=== PATIENT | male | born 1940 | race Caucasian/White ===

== ENCOUNTER 2019-12-07 12:02 | Inpatient (IN) | payer MEDICARE ==
[~2019-12-07] VITALS: Ht 172.7 cm; Wt 79.4 kg
[2019-12-07] MEDS ORDERED: LIPITOR20 MG (12:18)
[2019-12-07] MEDS ORDERED: LOPRESSOR25 MG PO (12:18)
[2019-12-07 12:41] LABS: BASOPHILS 0.3 % (0-2); EOSINOPHILS 0.7 % (0-7); HEMATOCRIT 32.9 % (42.0-54.0); HEMOGLOBIN 11.7 g/dL (13.5-17.5); LYMPHOCYTES 16.8 % (15-50); MCHC 35.6 g/dL (31.0-37.0); MCV 87.3 fL (80.0-100.0); MONOCYTES 10.4 % (2-11); NEUTROPHILS 71.8 % (40-80); PLATELET COUNT 105 10x3/uL (130-400); RBC 3.77 10x6/uL (4.20-6.10); RDW 12.1 % (11.5-14.5)
[2019-12-07 12:51] LABS: CALC OSMOLALITY 281 mosm/kg (275-300); CARBON DIOXIDE 23.2 mmol/L (21.0-32.0); CHLORIDE - SERUM 101 mmol/L (98-107); CREATININE - SERUM 1.9 mg/dL (0.6-1.3); GLUCOSE 319 mg/dL (74-106); POTASSIUM - SERUM 4.3 mmol/L (3.5-5.1); SODIUM 131 mmol/L (136-145); UREA NITROGEN 33 mg/dL (7-18); eGFR NON AFRICAN AMERICAN 36 mL/min (90-120)
[2019-12-07 12:55] LABS: INR 1.06 (0.85-1.17); PROTIME 13.7 SECONDS (11.6-15.0)
[2019-12-07 12:56] LABS: APTT 38.4 SECONDS (22.8-39.4)
[2019-12-07 13:13] LABS: ALBUMIN 2.8 g/dL (3.4-5.0); ALKALINE PHOSPHATASE 72 U/L (30-120); ALT (SGPT) 40 U/L (10-68); BILIRUBIN - TOTAL 0.63 mg/dL (0.2-1.3); CKMB 3.2 U/L (0.0-3.6); CREATINE KINASE 725 UL (21-232); PRO BNP 592 pg/mL (0-450); PROTEIN - SERUM 6.4 g/dL (6.4-8.2); TROPONIN-I 0.039 ng/mL (0.000-0.060)
[2019-12-07 14:15] VITALS: BP 143/67
[2019-12-07 16:01] VITALS: BP 161/74
--- NOTE | 2019-12-07 17:00 | NUR ---
ZITHROMAX COMPLETED AT THIS TIME
--- NOTE | 2019-12-07 22:26 | NUR ---
PT FOUND DRINKING REG SPRITE. BS CHECKED SEE EMAR. PT HE NEED DIET DRINKS OR WATER.
[2019-12-07 22:34] VITALS: BP 154/76
--- NOTE | 2019-12-07 23:00 | NUR ---
PT MOVED FROM ER STRECHER TO INPATIENT BED FOR COMFORT. PT GIVEN WATER TO DRINK.
[2019-12-07 23:20] VITALS: BP 163/89
[2019-12-08] VITALS (17 sets, daily range): BP systolic 130–171; BP diastolic 60–87; BMI 26.7
--- NOTE | 2019-12-08 01:00 | NUR ---
PT RESTING EYES CLOSED RESP EVEN AND UNLABORED. WILL CONT TO MONITOR
--- NOTE | 2019-12-08 04:00 | NUR ---
PT RESTING EYES CLOSED RESP EVEN AND UNLABORED. WILL CONT TO MONITOR
--- NOTE | 2019-12-08 06:00 | NUR ---
PT GIVEN TOILETRY ITEMS AT THIS TIME. PT DENIES FURTHER NEEDS.
--- NOTE | 2019-12-08 07:10 | NUR ---
PT CARE ASSUMED AT THIS TIME, PT SLEEPING ON ENTRANCE TO ROOM, AWAKENS EASILY TO VOICE, ORIENTED X 4, RESPIRATIONS EVEN AND UNLABORED, PULSES EQUAL AND STRONG, NAD NOTED, URINAL EMPTIED OF 300 ML CLEAR YELLOW URINE, PIV SALINE LOCKED WITHOUT SIGNS OF INFLITRATION, VSS ON THE MONITOR, BED LOW AND LOCKED, DENIES NEEDS AT THIS TIME, CALL LIGHT IN REACH.
[2019-12-08 07:58] LABS: BASOPHILS 0.3 % (0-2); EOSINOPHILS 0 % (0-7); HEMATOCRIT 33.3 % (42.0-54.0); HEMOGLOBIN 11.8 g/dL (13.5-17.5); IMMATURE GRANULOCYTES 0.3 % (0-5); LYMPHOCYTES 16.6 % (15-50); MCH 30.8 pg (26.0-34.0); MCHC 35.4 g/dL (31.0-37.0); MCV 86.9 fL (80.0-100.0); MEAN PLATELET VOLUME 10.3 fL (7.4-10.4); MONOCYTES 9.6 % (2-11); NEUTROPHILS 73.2 % (40-80); PLATELET COUNT 126 10x3/uL (130-400); RBC 3.83 10x6/uL (4.20-6.10); RDW 12.1 % (11.5-14.5); WBC 3.4 10x3/uL (4.8-10.8)
[2019-12-08 08:34] LABS: ALBUMIN 2.7 g/dL (3.4-5.0); ALKALINE PHOSPHATASE 80 U/L (30-120); ALT (SGPT) 44 U/L (10-68); BILIRUBIN - TOTAL 0.36 mg/dL (0.2-1.3); CALCIUM 8.3 mg/dL (8.5-10.1); CARBON DIOXIDE 24.3 mmol/L (21.0-32.0); CHLORIDE - SERUM 102 mmol/L (98-107); CREATININE - SERUM 1.8 mg/dL (0.6-1.3); MAGNESIUM - SERUM 2.4 mg/dL (1.8-2.4); POTASSIUM - SERUM 4.5 mmol/L (3.5-5.1); PROTEIN - SERUM 6.6 g/dL (6.4-8.2); SODIUM 134 mmol/L (136-145); UREA NITROGEN 39 mg/dL (7-18); URIC ACID 7.1 mg/dL (2.6-7.2); eGFR NON AFRICAN AMERICAN 39 mL/min (90-120)
[2019-12-08 08:36] LABS: CALC OSMOLALITY 291 mosm/kg (275-300); CREATINE KINASE 530 UL (21-232); GLUCOSE 373 mg/dL (74-106)
--- NOTE | 2019-12-08 15:55 | NUR ---
PRIOR TO TRANSPORT TO THE FLOOR, PT URINATED APPRIXIMATELY 50 ML OF CONCENTRATED URINE, SPECIMEN SENT TO LAB.
--- NOTE | 2019-12-08 16:40 | NUR ---
PT RECEIVED FROM ER. ER NURSE ITZEL STATES PT WAS ABLE TO URINATE 50CC BUT DOES NOT FEEL PAIN OR HAVE THE URGE. PT URINATED 0710 300CC. XR SHOWED BLADDER DISTENTION AND 609MM. CALLED AND SPOKE WITH NAOMI ANGELES AND SHE STATES TO PLACE DEVLIN CATH FOR RETENTION. I VERBALIZED UNDERSTANDING.
--- NOTE | 2019-12-08 16:45 | NUR ---
16 GEORGIAN DEVLIN CATH PLACED PT TOLERATED WELL. OVER 500CC OF DARK CONCENTRATED URINE IN BAG. WILL CONTINUE TO MONITOR.
[2019-12-08 16:56] LABS: BILIRUBIN NEGATIVE (NEGATIVE); KETONE NEGATIVE (NEGATIVE); NITRITE NEGATIVE (NEGATIVE); UROBILINOGEN NORMAL mg/dL (< 2)
--- NOTE | 2019-12-08 19:30 | NUR ---
RECEIVED REPORT, WILL ASSUME CARE OF PT, TALKING ON PHONE, DENIES ANY NEEDS AT THIS TIME, BED IS LOW, SRX2, CALL LIGHT IN REACH, WILL CONTINUE PLAN OF CARE
[2019-12-09 03:19] VITALS: BP 159/79
[2019-12-09 06:54] LABS: BASOPHILS 0 % (0-2); EOSINOPHILS 0 % (0-7); HEMATOCRIT 31.5 % (42.0-54.0); HEMOGLOBIN 11.1 g/dL (13.5-17.5); IMMATURE GRANULOCYTES 0.2 % (0-5); LYMPHOCYTES 13.1 % (15-50); MCH 30.6 pg (26.0-34.0); MCHC 35.2 g/dL (31.0-37.0); MCV 86.8 fL (80.0-100.0); MEAN PLATELET VOLUME 9.9 fL (7.4-10.4); MONOCYTES 6.8 % (2-11); NEUTROPHILS 79.9 % (40-80); PLATELET COUNT 126 10x3/uL (130-400); RBC 3.63 10x6/uL (4.20-6.10); RDW 11.9 % (11.5-14.5); WBC 5.9 10x3/uL (4.8-10.8)
[2019-12-09 07:28] LABS: ALBUMIN 2.6 g/dL (3.4-5.0); ALKALINE PHOSPHATASE 65 U/L (30-120); ALT (SGPT) 46 U/L (10-68); BILIRUBIN - TOTAL 0.43 mg/dL (0.2-1.3); CALC OSMOLALITY 287 mosm/kg (275-300); CALCIUM 8.1 mg/dL (8.5-10.1); CARBON DIOXIDE 26.1 mmol/L (21.0-32.0); CHLORIDE - SERUM 105 mmol/L (98-107); CREATINE KINASE 331 UL (21-232); CREATININE - SERUM 1.6 mg/dL (0.6-1.3); GLUCOSE 230 mg/dL (74-106); MAGNESIUM - SERUM 2.3 mg/dL (1.8-2.4); POTASSIUM - SERUM 4.5 mmol/L (3.5-5.1); PROTEIN - SERUM 6.1 g/dL (6.4-8.2); SODIUM 137 mmol/L (136-145); UREA NITROGEN 33 mg/dL (7-18); URIC ACID 6.5 mg/dL (2.6-7.2); eGFR NON AFRICAN AMERICAN 44 mL/min (90-120)
[2019-12-09 07:30] VITALS: BP 166/85
--- NOTE | 2019-12-09 08:15 | NUR ---
PT RECEIVED AWAKE AND ALERT, STATES NOT SLEPT ALL NIGHT. TYLENOL GIVEN FOR PAIN. BP UP SO PRN MED GIVEN. WILL FOLLOW UP WITH PHYSICIAN REGARDING SOMETHING FOR SLEEP FOR TONIGHT. DEVLIN EMPTIED.
[2019-12-09 11:33] VITALS: BP 149/66
[2019-12-09 14:04] VITALS: Ht 172.7 cm; Wt 79.4 kg
[2019-12-09 16:30] VITALS: BP 140/59
--- NOTE | 2019-12-09 17:57 | NUR ---
PT ASSISTED TO BATHROOM FOR BM. ATE DINNER AND HAS BEEN TRYING TO REST.
--- NOTE | 2019-12-09 19:30 | NUR ---
PT IN BED, AAO X 3, RESP EVEN AND UNLABORED, NO DISTRESS NOTED, CL IN REACH, SR UP X 2.
[2019-12-09 20:00] VITALS: BP 148/71
[2019-12-10] VITALS: BP 140/66
[2019-12-10 04:00] VITALS: BP 146/61
[2019-12-10 06:35] LABS: BASOPHILS 0.3 % (0-2); EOSINOPHILS 0.8 % (0-7); HEMOGLOBIN 11.4 g/dL (13.5-17.5); LYMPHOCYTES 22.3 % (15-50); MCH 30.2 pg (26.0-34.0); MCHC 34.5 g/dL (31.0-37.0); MCV 87.5 fL (80.0-100.0); MEAN PLATELET VOLUME 9.5 fL (7.4-10.4); NEUTROPHILS 66.6 % (40-80); PLATELET COUNT 132 10x3/uL (130-400); RBC 3.77 10x6/uL (4.20-6.10)
[2019-12-10 06:39] LABS: WBC 3.8 10x3/uL (4.8-10.8)
[2019-12-10 06:59] LABS: ALBUMIN 2.6 g/dL (3.4-5.0); ANION GAP 11.8 mmol/L (8-16); BILIRUBIN - TOTAL 0.46 mg/dL (0.2-1.3); CALCIUM 8.1 mg/dL (8.5-10.1); CARBON DIOXIDE 27.1 mmol/L (21.0-32.0); CREATININE - SERUM 1.5 mg/dL (0.6-1.3); MAGNESIUM - SERUM 2.1 mg/dL (1.8-2.4); POTASSIUM - SERUM 3.9 mmol/L (3.5-5.1); PROTEIN - SERUM 6.1 g/dL (6.4-8.2)
--- NOTE | 2019-12-10 07:38 | NUR ---
PT RECEIVED ASLEEP IN BED. NO OBVIOUS SIGNS OF DISTRESS. CALL LIGHT IN REACH.
[2019-12-10 09:00] VITALS: BP 129/58
[2019-12-10 12:24] VITALS: BP 141/61
--- NOTE | 2019-12-10 15:18 | NUR ---
PT WITH DENTURES IN STYROFOAM CUP AT BEDSIDE. DENTURE CUP GIVEN. IV ANTIBIOTICS STARTED. PT STILL ON TELEMETRY.
--- NOTE | 2019-12-10 16:43 | MORECARE ---
CASE MANAGEMENT DISCHARGE SUMMARY PATIENT: PER STEPHEN UNIT: [id number] ADM DATE: 12/07/19 AGE: 79 : 39 SEX: M ROOM/BED: D.8 AUTHOR: DAYO BONILLA PHYSICIAN: REFERRING PHYSICIAN: KRISTAL MAZARIEGOS MD DATE OF SERVICE: 12/10/19 Discharge Plan Patient Name: PER STEPHEN [facility] [facility] 1940 Planned Disposition: Home or Self Care Anticipated Discharge Date: Discharge Date: Expected LOS: Initial Reviewer: [email or web address] Initial Review Date: 12/07/2019 Generated: 12/10/19 5:43 pm DCPIA - Discharge Planning Initial Assessment Updated by [email or web address]: Nevaeh Stringer on 12/10/19 4:40 pm * Is the patient Alert and Oriented? No * How many steps to enter\exit or inside your home? 0/0 * [facility] * Preadmission Environment Home Alone * ADLs Independent * Equipment None * List name and contact numbers for known caregivers / representatives who currently or will assist patient after discharge: Brian (brother) [phone] * Additional services required to return to the preadmission environment? Yes * Can the patient safely return to the preadmission environment? Yes * Has this patient been hospitalized within the prior 30 days at any hospital? No Patient Name: PER STEPHEN Page 74523 at 1643 All edits/amendments must be made on the electronic document DICTATION DATE: 12/10/191642 SENIOR ATTORNEY: NINA 12/10/191642 RPT#: [id number] DC DATE: STATUS: ADM IN [facility] [address] [place] [address] END OF REPORT
--- NOTE | 2019-12-10 16:52 | MORECARE ---
CASE MANAGEMENT DISCHARGE SUMMARY PATIENT: PER STEPHEN UNIT: [id number] ADM DATE: 12/07/19 AGE: 79 : 39 SEX: M ROOM/BED: D.2128 AUTHOR: IRENEDOC PHYSICIAN: REFERRING PHYSICIAN: KRISTAL MAZARIEGOS MD DATE OF SERVICE: 12/10/19 Discharge Plan Patient Name: PER STEPHEN Facility: [facility]:[place] : 1940 Planned Disposition: Home or Self Care Anticipated Discharge Date: Discharge Date: Expected LOS: Initial Reviewer: [email or web address] Initial Review Date: 12/07/2019 Generated: 12/10/19 5:51 pm Comments DCP- Discharge Planning Updated by [email or web address]: Nevaeh Stringer on 12/10/19 3:[address] Patient Name: PER STEPHEN Admission Status: ER Accout number: [id number] Admission Date: 12-07-2019 : 1940 Admission Diagnosis:DYSPNEA, UNSPECIFIED Attending: KRISTAL ZACARIAS Current LOS: 3 Anticipated DC Date: Planned Disposition: Home or Self Care Primary Insurance: [facility] MEDIC[employer] SOLUTIONS Discharge Planning Comments: CM called pt room and unable to reach pt. CM called pt brotherBrian at [phone] who provided DCP assessment. Prior to admission the patient lived at home and was independent of his ADL's. He did not use any DME, or required additional services at home. The pt has been on oxygen during this hospitalization and may require oxygen at home. The patient uses [facility] benefits so CM will obtain home oxygen from the [place] if warranted. Brian will continuous pickling line pickler his brother upon discharge. CM will continue to assist as needed with dc/planning needs. Multimedia Artist: Nevaeh Stringer DCPIA - Discharge Planning Initial Assessment Updated by [email or web address]: Nevaeh Stringer on 12/10/19 4:40 pm * Is the patient Alert and Oriented? No * How many steps to enter\exit or inside your home? 0/0 * [facility]CP [facility] * Pharmacy [facility] * Preadmission Environment Home Alone * ADLs Independent * Equipment None * List name and contact numbers for known caregivers / representatives who currently or will assist patient after discharge: Brian (brother) [phone] * Additional services required to return to the preadmission environment? Yes * Can the patient safely return to the preadmission environment? Yes * Has this patient been hospitalized within the prior 30 days at any hospital? No Last DP export: 12/10/19 3:43 p Patient Name: PER STEPHEN Page [id number] at 1652 All edits/amendments must be made on the electronic document DICTATION DATE: 12/10/191650 REGIONAL SALES COORDINATOR: NINA 12/10/191650 RPT#: [id number] DC DATE: STATUS: ADM IN [facility] [address] [place] [address] END OF REPORT
--- NOTE | 2019-12-10 18:27 | NUR ---
PT GIVEN INCENTIVE SPIROMETRY AND INSTRUCTED ON USE. ABLE TO GET 1500 VOLUME WITH GOOD TECHNIQUE.
--- NOTE | 2019-12-10 19:30 | NUR ---
PT IN BED, EYES CLOSED, RESP EVEN AND UNLABORED, NO DISTRESS NOTED, CL IN REACH, SR UP X 2
[2019-12-10 20:00] VITALS: BP 148/74
[2019-12-11 04:00] VITALS: BP 155/72
[2019-12-11 06:47] LABS: BASOPHILS 0 % (0-2); EOSINOPHILS 0 % (0-7); HEMATOCRIT 29.7 % (42.0-54.0); HEMOGLOBIN 10.4 g/dL (13.5-17.5); IMMATURE GRANULOCYTES 0.5 % (0-5); LYMPHOCYTES 15.9 % (15-50); MCH 30.2 pg (26.0-34.0); MCV 86.3 fL (80.0-100.0); MEAN PLATELET VOLUME 9.9 fL (7.4-10.4); NEUTROPHILS 77.6 % (40-80); PLATELET COUNT 130 10x3/uL (130-400); RBC 3.44 10x6/uL (4.20-6.10); RDW 11.8 % (11.5-14.5); WBC 3.6 10x3/uL (4.8-10.8)
[2019-12-11 07:20] LABS: ALBUMIN 2.4 g/dL (3.4-5.0); ANION GAP 10.7 mmol/L (8-16); BILIRUBIN - TOTAL 0.37 mg/dL (0.2-1.3); CALCIUM 8.1 mg/dL (8.5-10.1); CARBON DIOXIDE 26.6 mmol/L (21.0-32.0); CREATININE - SERUM 1.5 mg/dL (0.6-1.3); MAGNESIUM - SERUM 2.1 mg/dL (1.8-2.4); POTASSIUM - SERUM 4.3 mmol/L (3.5-5.1); PROTEIN - SERUM 5.9 g/dL (6.4-8.2)
[2019-12-11 08:19] VITALS: BP 126/44
--- NOTE | 2019-12-11 09:36 | NUR ---
0700-LYING IN BED W/EYES CLOSED, NO DISTRESS NOTED. 0900-BREAKFAST SERVED, DENIES ANY NEEDS.
[2019-12-11] MEDS ORDERED: AZITHROMYCIN500 MG PO (11:12)
[2019-12-11] MEDS ORDERED: OMNICEF300 MG PO (11:12)
[2019-12-11] MEDS ORDERED: DECADRON4 MG PO (11:13)
[2019-12-11] MEDS ORDERED: VENTOLIN HFA [SP8 GM INH (11:14)
[2019-12-11 12:09] VITALS: BP 132/62
--- NOTE | 2019-12-11 12:14 | MORECARE ---
CASE MANAGEMENT DISCHARGE SUMMARY PATIENT: PER STEPHEN UNIT: [id number] ADM DATE: 12/07/19 AGE: 79 : 39 SEX: M ROOM/BED: D.0125 AUTHOR: DAYO BONILLA PHYSICIAN: REFERRING PHYSICIAN: KRISTAL MAZARIEGOS MD DATE OF SERVICE: 12/11/19 Discharge Plan Patient Name: PER STEPHEN Facility: [facility]:[place] : 1940 Planned Disposition: Home or Self Care Anticipated Discharge Date: Discharge Date: Expected LOS: Initial Reviewer: [email or web address] Initial Review Date: 12/07/2019 Generated: 12/11/19 1:13 pm Comments DCP- Discharge Planning Updated by [email or web address]: Nevaeh Stringer on 12/11/19 11:[address] CM spoke with Akin from the [place] for home and portable 02. CM provided clinical updates. Jose states that Rotec from [place] will reach out to to provide clinical information. AVERY spoke with pt brother Brian about transportation. Brian states he is in [place] with his who is in the operating room as we speak to have her breast cancer surgery. Brian requests that the patient could be dc tomorrow so that he can care for his mic. DC IMM explained via phone. Brian verbalized understanding. Imm will be sent by certified mail with return receipt requested. Nevaeh MARIE, RN, DCP- Discharge Planning Updated by [id number]: Nevaeh Stringer on 12/10/19 3:[address] Patient Name: PER STEPHEN Admission Status: ER Accout number: [id number] Admission Date: 12-07-2019 : 1940 Admission Diagnosis:DYSPNEA, UNSPECIFIED Attending: KRISTAL ZACARIAS Current LOS: 3 Anticipated DC Date: Planned Disposition: Home or Self Care Primary Insurance: [facility] MEDICARE SOLUTIONS Discharge Planning Comments: CM called pt room and unable to reach pt. CM called pt brotherBrian at [phone] who provided DCP assessment. Prior to admission the patient lived at home and was independent of his ADL's. He did not use any DME, or required additional services at home. The pt has been on oxygen during this hospitalization and may require oxygen at home. The patient uses [place] benefits so CM will obtain [facility] oxygen [facility] the [facility] if warranted. Brian will picked edge sewing machine operator his brother upon discharge. CM will continue to assist as needed with dc/planning needs. Project Management Professor: Nevaeh Stringer DCPIA - Discharge Planning Initial Assessment Updated by [id number]: eNvaeh Stringer on 12/10/19 4:40 pm * Is the patient Alert and Oriented? No * How many steps to enter\exit or inside your home? 0/0 * [facility]CP [facility] * [facility] * Preadmission Environment Home Alone * ADLs Independent * Equipment None * List name and contact numbers for known caregivers / representatives who currently or will assist patient after discharge: Brian (brother) [phone] * Additional services required to return to the preadmission environment? Yes * Can the patient safely return to the preadmission environment? Yes * Has this patient been hospitalized within the prior 30 days at any hospital? No Last DP export: 12/10/19 3:52 p Patient Name: PER STEPHEN Page 51075 at 1214 All edits/amendments must be made on the electronic document DICTATION DATE: 12/11/19 1214 SECURITY ASSURANCE ANALYST: NINA 12/11/19 1214 RPT#: [id number] DC DATE: STATUS: ADM IN [facility] [address] [place] [address] END OF REPORT
--- NOTE | 2019-12-11 13:53 | NUR ---
REMOVED PT'S DEVLIN AT THIS TIME--APPROX 800CC'S CONCENTRATED URINE NOTED TO BAG. URINAL GIVEN TO PT--INFORMED PT TO CONTACT [facility] WITH FIRST URNINATION--PT STATES UNDERSTANDING TO ALL.
--- NOTE | 2019-12-11 13:55 | NUR ---
1100-LYING IN BED W/EYES CLOSED, NO DISTRESS NOTED. 1300-SPOKE TO PT'S BROTHER REGARDING PT'S DC--BROTHER STATES CONCERN ABOUT PICKING PT UP--STATES THAT HIS IS IN [place] AND HE WILL NOT BE ABLE TO COME IN CONTACT WITH THE PT DUE TO BEING COVID POSITIVE. BROTHER ALSO STATES THAT HE DOESN'T UNDERSTAND WHY THE PT IS BEING DC'D WHILE STILL TESTING POSITIVE--NURSE ATTEMPTS TO EXPLAIN AND EDUCATE THE PT'S BROTHER W/O UNDERSTANDING--BROTHER STATES I'M NOT COMING TO GET HIM AND THERE IS NO ONE ELSE THAT CAN. NURSE PLASTIC MAKER AMADOR NOTIFIED.
--- NOTE | 2019-12-11 13:59 | NUR ---
Nutrition Follow-up: Pt in droplet isolation; covid-19+. Chart reviewed. Decreased appetite. Noted plans to d/c soon. Diet: Renal ADA Wt: 175# (12/08) Labs noted: Na 135, Glu 257, Ca 8.1, Alb 2.4 Meds noted: Florajen, Humalog, Protonix, electrolyte protocol -MD may consider liberalizing to AHA ADA diet (K+ wnl). -Encourage PO intake and honor food preferences within diet restrictions. -Monitor wt. -RD following.
[2019-12-11 16:35] VITALS: BP 163/74
--- NOTE | 2019-12-11 19:55 | NUR ---
PT IN BED, AAO X 3, RESP EVEN AND UNLABORED, NO DISTRESS NOTED, PT VOIDED 300 ML/ STRAW COLORED URINE POST DEVLIN CATH REMOVAL. CL IN REACH, SR UP X 2.
[2019-12-11 20:00] VITALS: BP 156/69
[2019-12-12] VITALS: BP 137/67
[2019-12-12 04:00] VITALS: BP 155/77
--- NOTE | 2019-12-12 08:28 | NUR ---
0700-Lying in bed awake, alert, oriented. ICE WATER BROUGHT TO ROOM/REQUEST, DENIES ANY FURTHER NEEDS. NO DISTRESS NOTED.
[2019-12-12 08:34] VITALS: BP 158/67
--- NOTE | 2019-12-12 10:20 | MORECARE ---
CASE MANAGEMENT DISCHARGE SUMMARY PATIENT: PER STEPHEN UNIT: [id number] ADM DATE: 12/07/19 AGE: 79 : 39 SEX: M ROOM/BED: D.1181 AUTHOR: DAYO BONILLA PHYSICIAN: REFERRING PHYSICIAN: KRISTAL MAZARIEGOS MD DATE OF SERVICE: 12/12/19 Discharge Plan Patient Name: PER STEPHEN Facility: [facility]:[place] : 1940 Planned Disposition: Home or Self Care Anticipated Discharge Date: Discharge Date: Expected LOS: Initial Reviewer: [email or web address] Initial Review Date: 12/07/2019 Generated: 12/12/19 11:20 am Comments DCP- Discharge Planning Updated by [email or web address]: Nevaeh Stringer on 12/12/19 9:[address] Cm spoke with the patient about oxygen and transportation home. The patient states he will go home and states this is a safe discharge. The patient states he does not have a ride. Stated his brother, and his are immunocompromised and is unable to be near his family until he is not quarantined. Nursing can call [phone] when ready for pick remover. The patient will require a mask for discharge. DC imm delivered via phone to patient and brother. Pt verbalized understanding. Nevaeh Stringer DCP- Discharge Planning Updated by [id number]: Nevaeh Stringer on 12/11/19 11:[address] CM spoke with Akin from the [place] for home and portable 02. CM provided clinical updates. Jose states that Cece from [place] will reach out to to provide clinical information. AVERY spoke with pt brother Brian about transportation. Brian states he is in [place] with his who is in the operating room as we speak to have her breast cancer surgery. Brian requests that the patient could be dc tomorrow so that he can care for his mic. DC IMM explained via phone. Brian verbalized understanding. Imm will be sent by certified mail with return receipt requested. Nevaeh MARIE, RN,CM DCP- Discharge Planning Updated by [email or web address]: Nevaeh Stringer on 12/10/19 3:[address] Patient Name: PER STEPHEN Admission Status: ER Accout number: [id number] Admission Date: 12-07-2019 : 1940 Admission Diagnosis:DYSPNEA, UNSPECIFIED Attending: KRISTAL ZACARIAS Current LOS: 3 Anticipated DC Date: Planned Disposition: Home or Self Care Primary Insurance: [facility] MEDICARE SOLUTIONS Discharge Planning Comments: CM called pt room and unable to reach pt. CM called pt brother, Brian at [phone] who provided DCP assessment. Prior to admission the patient lived at home and was independent of his ADL's. He did not use any DME, or required additional services at home. The pt has been on oxygen during this hospitalization and may require oxygen at home. The patient uses VA benefits so CM will obtain home oxygen from the [facility] if warranted. Brian will pick remover his brother upon discharge. CM will continue to assist as needed with dc/planning needs. Boilermaker Assembly And Erection: Nevaeh Stringer DCPIA - Discharge Planning Initial Assessment Updated by [id number]: Nevaeh Stringer on 12/10/19 4:40 pm * Is the patient Alert and Oriented? No * How many steps to enter\exit or inside your home? 0/0 * PCP [facility] * Pharmacy [facility] * Preadmission Environment Home Alone * ADLs Independent * Equipment None * List name and contact numbers for known caregivers / representatives who currently or will assist patient after discharge: Brian (brother) [phone] * Additional services required to return to the preadmission environment? Yes * Can the patient safely return to the preadmission environment? Yes * Has this patient been hospitalized within the prior 30 days at any hospital? No Coverage Notice Reviewer: [id number] - Nevaeh Stringer Notice Issued Date-Time: 12/11/2019 13:15 Notice Type: IM Discharge Notice Notice Delivered To: Patient Relationship to Patient: Self High Lift Driver Name: Delivery Method: PHONE - Phone Amrita Days: Prior Verbal Notification: Yes Recipient Understood Notice: Yes Recipient Signature: Med Rec Note Co-signed by Attending: Coverage Notice Comment: dc imm delivered Last DP export: 12/11/19 11:14 a Patient Name: PER STEPHEN Page 54427 at 1020 All edits/amendments must be made on the electronic document DICTATION DATE: 12/12/19 1020 BAND MACHINE OPERATOR: NINA 12/12/19 1020 RPT#: [id number] DC DATE: STATUS: ADM IN [facility] [address] [facility] [place] [address] END OF REPORT
--- NOTE | 2019-12-12 13:22 | NUR ---
IV REMOVED FROM LEFT HAND, CATH INTACT, BANDAGE APPLIED, CM REMOVED--PT DRESSED AND ALL BELONGINGS GIVEN TO HIM-- DC INSTRUCTIONS GIVEN TO PT VERBALLY EXPLAINED--PT STATED UNDERSTANDING TO ALL. I CAB CALLED AND WILL BE HERE SOON.
--- NOTE | 2019-12-12 13:35 | NUR ---
PT EXITED HOSPITAL/WHEELCHAIR IN GOOD STABLE CONDITION, NO DISTRESS NOTED.
--- NOTE | 2019-12-15 08:59 | MORECARE ---
CASE MANAGEMENT DISCHARGE SUMMARY PATIENT: PER STEPHEN UNIT: [id number] ADM DATE: 12/07/19 AGE: 79 : 39 SEX: M ROOM/BED: D.5333 AUTHOR: DAYO BONILLA PHYSICIAN: REFERRING PHYSICIAN: KRISTAL MAZARIEGOS MD DATE OF SERVICE: 12/15/19 Discharge Plan Patient Name: PER STEPHEN Facility: [facility]:[place] : 1940 Planned Disposition: Home or Self Care Anticipated Discharge Date: Discharge Date: 12/12/2019 Expected LOS: Initial Reviewer: [email or web address] Initial Review Date: 12/07/2019 Generated: 12/15/19 9:59 am Comments DCP- Discharge Planning Updated by [email or web address]: Nevaeh Stringer on 12/12/19 9:[address] Cm spoke with the patient about oxygen and transportation home. The patient states he will go home and states this is a safe discharge. The patient states he does not have a ride. Stated his brother, and his are immunocompromised and is unable to be near his family until he is not quarantined. Nursing can call [phone] when ready for meat pickler. The patient will require a mask for discharge. DC imm delivered via phone to patient and brother. Pt verbalized understanding. Nevaeh Stringer DCP- Discharge Planning Updated by [email or web address]: Nevaeh Stringer on 12/11/19 11:[address] CM spoke with Akin from the [place] for home and portable 02. CM provided clinical updates. Jose states that Rotenriqueta from [place] will reach out to to provide clinical information. AVERY spoke with pt brother Brian about transportation. Brian states he is in [place] with his who is in the operating room as we speak to have her breast cancer surgery. Brian requests that the patient could be dc tomorrow so that he can care for his mic. DC IMM explained via phone. Brian verbalized understanding. Imm will be sent by certified mail with return receipt requested. Nevaeh MARIE, RN,CM DCP- Discharge Planning Updated by [email or web address]: Nevaeh Stringer on 12/10/19 3:[address] Patient Name: PER STEPHEN Admission Status: ER Accout number: [id number] Admission Date: 12-07-2019 : 1940 Admission Diagnosis:DYSPNEA, UNSPECIFIED Attending: KRISTAL ZACARIAS Current LOS: 3 Anticipated DC Date: Planned Disposition: Home or Self Care Primary Insurance: [facility] MEDICARE SOLUTIONS Discharge Planning Comments: CM called pt room and unable to reach pt. CM called pt brother, Brian at [phone] who provided DCP assessment. Prior to admission the patient lived at home and was independent of his ADL's. He did not use any DME, or required additional services at home. The pt has been on oxygen during this hospitalization and may require oxygen at home. The patient uses VA benefits so CM will obtain home oxygen from the [facility] if warranted. Brian will meat pickler his brother upon discharge. CM will continue to assist as needed with dc/planning needs. Dispatch Specialist: Nevaeh Stringer DCPIA - Discharge Planning Initial Assessment Updated by [email or web address]: Nevaeh Stringer on 12/10/19 4:40 pm * Is the patient Alert and Oriented? No * How many steps to enter\exit or inside your home? 0/0 * PCP [facility] * Pharmacy [facility] * Preadmission Environment Home Alone * ADLs Independent * Equipment None * List name and contact numbers for known caregivers / representatives who currently or will assist patient after discharge: Brian (brother) [phone] * Additional services required to return to the preadmission environment? Yes * Can the patient safely return to the preadmission environment? Yes * Has this patient been hospitalized within the prior 30 days at any hospital? No Coverage Notice Reviewer: [id number] - Nevaeh Stringer Notice Issued Date-Time: 12/11/2019 13:15 Notice Type: IM Discharge Notice Notice Delivered To: Patient Relationship to Patient: Self Procurement Technician Name: Delivery Method: PHONE - Phone Amrita Days: Prior Verbal Notification: Yes Recipient Understood Notice: Yes Recipient Signature: [place] Rec Note Co-signed by Attending: Coverage Notice Comment: dc imm delivered Last DP export: 12/12/19 9:20 a Patient Name: PER STEPHEN Page 28649 at 0859 All edits/amendments must be made on the electronic document DICTATION DATE: 10/12/20 0859 MEDICAL LEGAL INVESTIGATOR: NINA 12/15/1960 RPT#: [id number] DC DATE:12/12/19 STATUS: DIS IN [facility] [address] [place] [address] END OF REPORT
== END 2019-12-12 13:37 | disposition home or self-care (01) | DRG 177 ==
LOC: D.ER 12:02 → D.M2 15:36 → D.EDHOLD 15:36 → D.M2 12-08 16:27
PROVIDERS: Family Medicine; ADMIT Family Medicine Adult Medicine; ATTEND Family Medicine Adult Medicine
DX: U07.1 COVID-19 (principal); J12.89 Other viral pneumonia; J96.01 Acute respiratory failure with hypoxia; D61.818 Other pancytopenia; E87.1 Hypo-osmolality and hyponatremia; N17.9 Acute kidney failure, unspecified; E11.22 Type 2 diabetes mellitus with diabetic chronic kidney disease; E11.65 Type 2 diabetes mellitus with hyperglycemia; I12.9 Hypertensive chronic kidney disease with stage 1 through stage 4 chronic kidney disease, or unspecified chronic kidney disease; N18.30 Chronic kidney disease, stage 3 unspecified; D63.1 Anemia in chronic kidney disease; H54.40 Blindness, one eye, unspecified eye; E78.5 Hyperlipidemia, unspecified